=== PATIENT | female | born 1985 | race Asian ===

== ENCOUNTER 2016-09-15 15:25 | Inpatient (IN) | payer SELFPAY ==
[~2016-09-15] VITALS: Ht 168 cm; Wt 46.3 kg
[2016-09-15] MEDS ORDERED: PREN-546 PO (15:47)
[2016-09-15] MEDS ORDERED: LACTATED RINGERS 1,000 ML IV SCH (15:48)
[2016-09-15] MEDS ORDERED: OXYTOCIN 20 UNITS/LR PREMIX 1,000 ML IV SCH (15:48)
[2016-09-15] MEDS ORDERED: METHYLERGONOVINE 0.2 MG/ML AMP IM SCH (15:50)
[2016-09-15] MEDS ORDERED: NALBUPHINE 10 MG/ML AMP IVP PRN (15:50)
[2016-09-15] MEDS ORDERED: PROMETHAZINE 25 MG/ML VIAL IVP PRN (15:50)
[2016-09-15] MEDS ORDERED: OXYTOCIN 10 UNITS/ML VIAL IM PRN ×2 (15:50→22:55)
[2016-09-15 16:35] LABS: BASOPHILS # (AUTO) 0.1 K/uL (0.00-0.22); EOSINOPHILS # (AUTO) 0.1 K/uL (0-0.4); EOSINOPHILS % (AUTO) 1.4 % (0.0-4.0); HEMATOCRIT 39.2 % (36-48); LYMPHOCYTES # (AUTO) 1.8 K/uL (2.5-16.5); LYMPHOCYTES % (AUTO) 18.4 % (20.5-51.1); MEAN CORPUSCULAR HEMOGLOBIN 29 pg (27-31); MEAN CORPUSCULAR HGB CONC 33 g/dL (33-37); MEAN CORPUSCULAR VOLUME 88 fL (80-94); MONOCYTES # (AUTO) 0.2 K/uL (0.8-1.0); MONOCYTES % (AUTO) 2.5 % (1.7-9.3); NEUTROPHILS # (AUTO) 7.5 K/uL (1.8-7.7); NEUTROPHILS % (AUTO) 76.7 % (42.2-75.2); PLATELET COUNT (AUTO) 149 K/uL (140-450); RED BLOOD CELL COUNT(AUTO) 4.47 MIL/uL (4.20-5.40); RED CELL DISTRIBUTION WIDTH 13.3 % (11.6-13.7); WHITE BLOOD COUNT (AUTO) 9.7 K/uL (4.8-10.8)
[2016-09-15 16:38] LABS: HIV RAPID SCREEN NON-REACTIVE (NON REACTIV)
[2016-09-15] MEDS ORDERED: OXYTOCIN 20 UNITS/LR PREMIX 1,000 ML IV ONE (16:50)
[2016-09-15 17:21] VITALS: BP 114/91
[2016-09-15 17:33] LABS: APPEARANCE,URINE HAZY (CLEAR); BILIRUBIN,URINE NEGATIVE (NEGATIVE); BLOOD, URINE TRACE-I (NEGATIVE); COLOR,URINE YELLOW (YELLOW); LEUKOCYTE ESTERASE ,URINE NEGATIVE (NEGATIVE); NITRITE, URINE NEGATIVE (NEGATIVE); PH,URINE 6.5 (5.0-9.0); PROTEIN,URINE 1+ (NEGATIVE); UGLUCOSE NEGATIVE (NEGATIVE)
[2016-09-15] MEDS ORDERED: ROPIVACAINE 0.2%/NS PREMIX 250 ML EPI ONE (17:39)
[2016-09-15 17:41] LABS: BACTERIA,URINE 1+ /HPF (None Seen); RBC,URINE 0-3 /HPF (0-5); SQUAMOUS EPITHELIAL CELL,UR 20-40 /LPF (0-3 (FEW))
[2016-09-15 17:46] LABS: ANION GAP 12.4 (8-16); CALCIUM 8.7 mg/dL (8.5-10.1); CARBON DIOXIDE 24.4 mmol/L (21-32); CREATININE 0.6 mg/dL (0.6-1.3); POTASSIUM 3.8 mmol/L (3.5-5.1)
[2016-09-15 17:52] LABS: ALBUMIN 2.6 g/dL (3.4-5.0); TOTAL BILIRUBIN 0.3 mg/dL (0.0-1.0); TOTAL PROTEIN, SERUM 6.6 g/dL (6.4-8.2)
[2016-09-15] MEDS ORDERED: INSU-1188 SUBQ (18:27)
[2016-09-15] MEDS ORDERED: NOVR SUBQ (18:27)
[2016-09-15] MEDS ORDERED: OXYTOCIN 10 UNITS/ML VIAL ONE (20:31)
[2016-09-15] MEDS ORDERED: METHYLERGONOVINE 0.2 MG/ML AMP IM PRN (22:55)
[2016-09-15] MEDS ORDERED: MEASLES, MUMPS, AND RUBELLA 1 VIAL SQVAC PRN (22:55)
[2016-09-15] MEDS ORDERED: TEMAZEPAM 15 MG CAP PO PRN (22:55)
[2016-09-15] MEDS ORDERED: WITCH HAZEL 40 PAD PACKAGE TP PRN (22:55)
[2016-09-15] MEDS ORDERED: oxyCODONE/APAP 5/325 MG 1 TAB TAB PO PRN (22:55)
[2016-09-16] MEDS ORDERED: IBUPROFEN 800 MG TAB ONE (00:16)
[2016-09-16] MEDS: IBUPROFEN 800 MG TAB PO PRN ×2 (04:31→19:47)
[2016-09-16 05:30] LABS: HEMATOCRIT 35.4 % (36-48); HEMOGLOBIN 11.6 g/dL (12.0-16.0)
[2016-09-16] MEDS: HYDROcodone/APAP 5/325 MG 1 TAB TAB PO PRN ×3 (08:23→16:13)
--- NOTE | 2016-09-16 10:08 | NUR ---
PATIENT HAS BEEN SCREENED AND CATEGORIZED LOW NUTRITION RISK. PATIENT WILL BE SEEN WITHIN 7 DAYS OF ADMISSION. 09/22/[address]
[2016-09-16] MEDS ORDERED: INSULIN LISPRO SLIDING SCALE 100 UNITS/ML VIAL SUBQ PRN (12:05)
[2016-09-16 20:57] LABS: RAPID PLASMA REAGIN NON-REACTIVE (Non Reactiv)
[2016-09-16] MEDS ORDERED: DOCUSATE SOD/SENNA 50/8.6 MG 1 TAB PO SCH ×2 (21:00)
[2016-09-16] MEDS: BLOOD GLUCOSE MONITORING 1 DEV DEV FS SCH (21:01)
[2016-09-17] MEDS: HYDROcodone/APAP 5/325 MG 1 TAB TAB PO PRN (03:14)
[2016-09-17] MEDS: BLOOD GLUCOSE MONITORING 1 DEV DEV FS SCH (07:28)
[2016-09-17] MEDS ORDERED: SODIUM PHOSPHATE 118 ML ENEM RC SCH (08:30)
[2016-09-17] MEDS: IBUPROFEN 800 MG TAB PO PRN (11:31)
== END 2016-09-17 14:40 | disposition home or self-care (01) | DRG 775 ==
LOC: MLD 15:25 → MFCC 09-16 01:00
PROVIDERS: ADMIT Obstetrics & Gynecology; ATTEND Obstetrics & Gynecology
PROC: 10E0XZZ Delivery of Products of Conception, External Approach (ICD-10-PCS; principal; 2016-09-15)
PROC: 0KQM0ZZ Repair Perineum Muscle, Open Approach (ICD-10-PCS; 2016-09-15)
PROC: 10907ZC Drainage of Amniotic Fluid, Therapeutic from Products of Conception, Via Natural or Artificial Opening (ICD-10-PCS; 2016-09-15)
PROC: 00HU33Z Insertion of Infusion Device into Spinal Canal, Percutaneous Approach (ICD-10-PCS; 2016-09-15)
PROC: 3E0R3CZ (ICD-10-PCS; 2016-09-15)
PROC: 3E0234Z Introduction of Serum, Toxoid and Vaccine into Muscle, Percutaneous Approach (ICD-10-PCS; 2016-09-16)
DX: O69.1XX0 Labor and delivery complicated by cord around neck, with compression, not applicable or unspecified (principal); O42.90 Premature rupture of membranes, unspecified as to length of time between rupture and onset of labor, unspecified weeks of gestation; O70.1 Second degree perineal laceration during delivery; O24.429 Gestational diabetes mellitus in childbirth, unspecified control; Z3A.38 38 weeks gestation of pregnancy; Z37.0 Single live birth; Z23 Encounter for immunization
CPT/HCPCS: 36415; 51702; 59409; 80053; 81001; 82948; 85018; 85025; 86592; 86886; 86900; 86901; 87086; 90707; 90715; J1815; J2590; J2795; J7120